=== PATIENT | male | born 1980 | race Caucasian/White ===

== ENCOUNTER 2016-10-07 19:28 | Emergency (ER) | payer OTHER ==
[~2016-10-07] VITALS: Ht 175.3 cm; Wt 93.4 kg
[2016-10-07] MEDS ORDERED: ATOR20TA9 PO (19:48)
[2016-10-07 19:52] VITALS: BP 115/80
== END 2016-10-07 21:37 | disposition home or self-care (01) ==
LOC: ED 21:20
DX: S76.011A Strain of muscle, fascia and tendon of right hip, initial encounter (principal); E78.00 Pure hypercholesterolemia, unspecified; X58.XXXA Exposure to other specified factors, initial encounter; Y93.89 Activity, other specified; Y92.89 Other specified places as the place of occurrence of the external cause; Y99.8 Other external cause status
CPT/HCPCS: 72110; 99284